=== PATIENT | female | born 1990 | race Caucasian/White ===

== ENCOUNTER 2018-05-06 15:13 | Emergency (ER) | payer OTHER, SELFPAY ==
[2018-05-06 15:16] VITALS: BP 121/80; PULSE 75; RESP 18; TEMP 36.7; O2SAT 99
--- NOTE | 2018-05-06 15:42 | ED.GENADUL ---
Disposition Clinical Impression: Urinary tract infection Disposition: HOME Condition: Stable Instructions: Urinary Tract Infection in Women (ED) Additional Instructions: Return immediately if you have any severe nausea vomiting, flank pain, high fevers or chills. Otherwise take your antibiotics as prescribed along with your normal daily medications. If you not improving over the next week please follow-up with your primary care provider for reassessment. Prescriptions: Nitrofurantoin Monohyd/M-Cryst [Macrobid] 100 mg PO BID #9 cap Phenazopyridine HCl [Pyridium] 200 mg PO Q8H #3 tablet Referrals: Primary Care Provider [Outside] - 1 week (If not improving over the next week please follow-up with your primary care provider for reassessment.) Medical Decision Making - Lab Data Results reviewed for labs ordered during visit: Yes - Medical Decision Making Patient presenting to the emergency department for chief complaint of burning urination with some urgency and frequency. Patient states urinary tract infections in the past that are presented with similar symptoms. Patient does state that she has been on Bactrim in the last 6 months for urinary tract infection and just finished a prednisone taper for a Crohn's flare that she had. There is clinical concern for UTI so urinalysis was sent. Patient is otherwise stable with no signs of toxicity, pyelonephritis. Review of urinalysis confirms clinical suspicion of urinary tract infection and patient was placed upon Macrobid and Pyridium. She was encouraged to return for any new or significant worsening of symptoms otherwise when she returns home from her vacation to follow-up with her primary care provider for reassessment as needed. urinary culture was initiated by lab. After discussion of diagnosis and plan of care with patient patient agreed and stated no further needs, questions, or concerns at this time. History of Present Illness - General Chief complaint: Urinary Stated complaint: UTI? Time Seen by Provider: 05/06/18 15:32 Source: patient, RN notes reviewed Mode of arrival: ambulatory Limitations: no limitations - History of Present Illness Initial comments: Patient presenting to the emergency department for chief complaint of burning with urination urgency and frequency. She does state that she gets urinary tract infections once or twice a year and this feels very similar to previous ones. Previously she has had significantly worse symptoms and has had kidney infections in the past but she states that she is coming in early due to being in the area on vacation. Patient denies any nausea vomiting, chills, abdominal pain or discomfort. Patient does state mild lower back pain but attributes that to being on her menses. Onset/Timin -: hour(s) Location: genitals Severity scale (1-10): 5 Quality: burning Consistency: constant Improves with: none Worsens with: none Associated Symptoms: denies other symptoms Treatments Prior to Arrival: none - Related Data Acetaminophen [Tylenol Extra Strength] 500 mg PO PRN PRN 05/06/18 DULoxetine [Cymbalta] 60 mg PO DAILY 05/06/18 Etonogestrel/Ethinyl Estradiol [Nuvaring Vaginal Ring] 1 each VG 05/06/18 Hydrocortisone [Cortef] 5 mg PO DAILY PRN PRN 05/06/18 Nitrofurantoin Monohyd/M-Cryst [Macrobid] 100 mg PO BID #9 cap 05/06/18 Phenazopyridine HCl [Pyridium] 200 mg PO Q8H #3 tablet 05/06/18 Allergies Allergy/AdvReac Type Severity Reaction Status Date / Time No Known Allergies Allergy Unverified 05/06/18 15:23 Review of Systems Constitutional: denies: chills, fever, malaise Respiratory: denies: cough, shortness of breath Cardiovascular: denies: chest pain Gastrointestinal: as per HPI. denies: abdominal pain, nausea, vomiting, diarrhea Genitourinary: as per HPI, urgency, dysuria, frequency. denies: hematuria, discharge, abnormal menses Musculoskeletal: as per HPI, back pain Comment: All other systems reviewed and negative Past Medical History - Past Medical History Crohn's Surgical history: non-contributory [employer] history: other (Use of NuvaRing for control) LMP comments: current - Social History Smoking status: never smoker Alcohol use: occasionally Drug use: none Living Situation: other (In the area on vacation) General Exam - General Limitations: no limitations General appearance: alert, in no apparent distress - Respiratory Respiratory exam: Present: normal lung sounds bilaterally. Absent: respiratory distress - Cardiovascular Cardiovascular Exam: Present: regular rate, normal rhythm, normal heart sounds - Back Exam Back exam: Absent: CVA tenderness (R), CVA tenderness (L) - Neurological Exam Neurological exam: Present: alert, oriented X3, normal gait. Absent: altered - Skin Skin exam: Present: warm, dry Course Vital Signs - 24 hr 05/06/18 15:16 Temperature 36.7 C Pulse 75 Respiratory 18 Rate Blood Pressure 121/80 Pulse Oximetry 99
[2018-05-06 15:56] LABS: Bilirubin Negative (Negative); Blood Trace-intact (Negative); Clarity Clear; Glucose Negative (Negative); Ketones Negative (Negative); Leukocyte Esterase Small (Negative); Nitrite Negative (Negative); Specific Gravity <= 1.005 (1.005-1.025); Urobilinogen 0.2 EU/dL (Up TO 0.2); pH 5.5 (5-8)
[2018-05-06 16:23] LABS: Bacteria Moderate HPF (Negative); C & S Indicated? Yes; Casts Negative LPF (Negative); Crystals Negative HPF (Negative); Epithelial Cells Negative HPF (Negative); Mucus Negative (Negative); RBC Negative (0-2); WBC >50 HPF (0-5)
[2018-05-06] MEDS: MacroBID 100 MG CAP PO (16:34)
[2018-05-06] MEDS: Phenazopyridine 200 MG TAB PO (16:34)
== END 2018-05-06 16:39 | disposition home or self-care (01) ==
PROVIDERS: Emergency Provider Student in an Organized Health Care Education/Training Program
DX: N39.0 Urinary tract infection, site not specified (principal); B96.20 Unspecified Escherichia coli [E. coli] as the cause of diseases classified elsewhere
CPT/HCPCS: 81025; 87077; 99283; 81003; 81015; 87086; 87186